=== PATIENT | female | born 1980 | race Caucasian/White ===

== ENCOUNTER 2016-10-28 19:44 | Emergency (ER) | payer OTHER ==
[~2016-10-28] VITALS: Ht 160 cm; Wt 140.0 kg
[~2016-10-28 19:44] MED LIST: ALBUTEROL SULF8.5 GM IH; AMOXICILLIN250 MG PO; CELEXA40 MG PO; CIPRO500 MG PO; ESCITALOPRAM OX10 MG PO; FIORICET,ESG1 TABLET PO; FLEXERIL10 MG PO; GUANFACINE HCL2 MG PO; LEVAQUIN750 MG PO; LEXAPRO10 MG PO; LORTAB 5-325 M1 EACH PO; MAGIC MOUTHWASH PO; MECLIZINE HCL25 MG PO; MEDROXYPROGESTER5 MG PO; MOBIC7.5 MG PO; MOTRIN800 MG PO; NAPROSYN500 MG PO; NOHOMEMEDS; NORCO 5/3251 TABLET PO; PERCOCET 5/31 TABLET PO; TESSALON200 MG PO; ULTRACET1 TABLET PO; ULTRAM50 MG PO; VICODIN 5-3001 EACH PO; XANAX0.5 MG PO; XANAX1 MG PO; ZANTAC150 MG PO; ZOFRAN4 MG PO
[2016-10-28 20:30] LABS: HEMATOCRIT 40.7 % (36.0-46.0); MCH 31.8 PG (29.0-34.0); MCHC 34.9 G/DL (30.0-36.0); MCV 91.1 FL (83-99); MEAN PLAT.VOLUME 9.9 uM^3 (9.5-12.4); PLATELET COUNT 300 K/uL (156-360); RBC DIS.WIDTH-CV 12.4 % (11.8-14.6); RBC DIS.WIDTH-SD 40.1 % (39-53); RED BLOOD COUNT 4.47 M/uL (3.80-5.20); WHITE BLOOD COUNT 11.4 K/uL (4.1-10.2)
[2016-10-28 20:32] LABS: ADD MIUA? YES; BILIRUBIN NEGATIVE; BLOOD NEGATIVE; COLOR YELLOW ((YELLOW)); GLUCOSE (STRIP) NEGATIVE; KETONES NEGATIVE; LEUKOCYTES SMALL; NITRITE NEGATIVE; PROTEIN (STRIP) NEGATIVE; SPECIFIC GRAVITY 1.019 (1.000-1.030); UROBILINOGEN 0.2 MG/DL (0.2-1.0)
[2016-10-28 20:48] LABS: CHLORIDE 104 mEq/L (99-109); POTASSIUM 3.8 mEq/L (3.7-5.4); SODIUM 137 mEq/L (136-147)
[2016-10-28 20:50] LABS: GLUCOSE 142 mg/dL (70-99)
[2016-10-28 20:51] LABS: ANION GAP 12 MEQ/L (2-14)
[2016-10-28 20:52] LABS: BACTERIA RARE; CASTS NONE SEEN /LPF; CRYSTALS NONE SEEN; EPITHELIAL CELLS 3+; MUCUS NONE SEEN; RED BLOOD CELLS 0-5 /HPF (0-5); TOTAL BILIRUBIN 0.3 mg/dL (0.0-1.0); UCUL ADDED? NO
[2016-10-28 20:53] LABS: ALKALINE PHOSPHATASE 76 IU/L (3-129)
[2016-10-28 20:54] LABS: GFR ESTIMATE (CALCULATED) > 59 mL/min/
[2016-10-28 20:55] LABS: UREA NITROGEN (BUN) 8 mg/dL (9-23)
[2016-10-28 20:57] LABS: LIPASE 37 U/L (1.0-51.0)
[2016-10-28] MEDS ORDERED: DICYCLOMINE HCL10 MG PO (21:00)
[2016-10-28] MEDS ORDERED: ZANTAC300 MG PO (21:00)
[2016-10-28] MEDS ORDERED: CELEXA20 MG PO (21:01)
[2016-10-28 21:03] LABS: QUANTITATIVE HCG < 4.0 MIU/ML
[2016-10-29] MEDS ORDERED: ULTRAM50 MG PO (00:08)
[2016-10-29] MEDS ORDERED: CITRATE OF MAG296 ML PO (00:08)
[2016-10-29 00:25] VITALS: BP 117/69
== END 2016-10-29 00:42 | disposition home or self-care (01) ==
LOC: EME 19:44 → RME 19:44
DX: R10.31 Right lower quadrant pain (principal); K59.00 Constipation, unspecified
CPT/HCPCS: 74177; 80053; 81003; 83690; 84702; 85027; 99281; 99284

== ENCOUNTER → 2016-12-17 | Outpatient (CLI) | payer OTHER ==
[~2016-12-17] VITALS: Ht 160 cm; Wt 136.5 kg
[~2016-12-17] MED LIST changes: +CELEXA20 MG PO; +CITRATE OF MAG296 ML PO; +DICYCLOMINE HCL10 MG PO; +MIRALAX255 GM PO; +ZANTAC300 MG PO; +ZITHROMAX Z-PA250 MG PO
== END | disposition home or self-care (01) ==
LOC: AMB 11:35
DX: R14.0 Abdominal distension (gaseous) (principal); R10.9 Unspecified abdominal pain; R19.4 Change in bowel habit; K29.70 Gastritis, unspecified, without bleeding; D12.5 Benign neoplasm of sigmoid colon; I49.9 Cardiac arrhythmia, unspecified
CPT/HCPCS: 88305; 88342 TC; J2250; J3010

== ENCOUNTER 2017-01-07 20:22 | Emergency (ER) | payer OTHER ==
[~2017-01-07] VITALS: Ht 160 cm; Wt 138.0 kg
[2017-01-07 21:06] LABS: ADD MIUA? YES; BILIRUBIN NEGATIVE; BLOOD NEGATIVE; COLOR YELLOW ((YELLOW)); GLUCOSE (STRIP) NEGATIVE; KETONES NEGATIVE; LEUKOCYTES SMALL; NITRITE NEGATIVE; PROTEIN (STRIP) NEGATIVE; SPECIFIC GRAVITY 1.023 (1.000-1.030); UROBILINOGEN 0.2 MG/DL (0.2-1.0)
[2017-01-07 21:14] LABS: HEMATOCRIT 42.7 % (36.0-46.0); MCH 31.4 PG (29.0-34.0); MCHC 33.5 G/DL (30.0-36.0); MCV 93.6 FL (83-99); PLATELET COUNT 311 K/uL (156-360); RBC DIS.WIDTH-CV 11.9 % (11.8-14.6); RBC DIS.WIDTH-SD 41.3 % (39-53); RED BLOOD COUNT 4.56 M/uL (3.80-5.20)
[2017-01-07 21:28] LABS: CHLORIDE 105 mEq/L (99-109)
[2017-01-07 21:29] LABS: POTASSIUM 4.1 mEq/L (3.7-5.4); SODIUM 141 mEq/L (136-147)
[2017-01-07 21:29] LABS: BACTERIA NONE SEEN /HPF; EPITHELIAL CELLS 2+ /HPF; MUCUS TRACE /LPF; RED BLOOD CELLS NONE SEEN /HPF (0-5); UCUL ADDED? NO; WHITE BLOOD CELLS NONE SEEN /HPF (0-5)
[2017-01-07 21:31] LABS: GLUCOSE 98 mg/dL (70-99)
[2017-01-07 21:32] LABS: ANION GAP 11 MEQ/L (2-14)
[2017-01-07 21:34] LABS: ALKALINE PHOSPHATASE 70 IU/L (3-129); GFR ESTIMATE (CALCULATED) > 59 mL/min/
[2017-01-07 21:36] LABS: UREA NITROGEN (BUN) 16 mg/dL (9-23)
[2017-01-07 21:46] LABS: QUANTITATIVE HCG < 4.0 MIU/ML
[2017-01-07 22:26] LABS: SAMPLE HEMOLYSIS CHECK 0; SAMPLE ICTERIC CHECK 0; SAMPLE LIPEMIA CHECK 0; TOTAL BILIRUBIN 0.3 MG/DL (0.0-1.0)
[2017-01-07] MEDS ORDERED: BENTYL10 MG PO (23:11)
[2017-01-07 23:20] VITALS: BP 141/78
== END 2017-01-07 23:20 | disposition home or self-care (01) ==
LOC: EME 20:22
DX: R10.9 Unspecified abdominal pain (principal); I10 Essential (primary) hypertension
CPT/HCPCS: 74176; 80053; 81003; 84702; 85027; 99281; 99284; J2270